=== PATIENT | female | born 2000 | race Hispanic/Latino ===

== ENCOUNTER 2024-02-13 | Observation (INO) | payer SELFPAY ==
[2024-02-13 00:32] LABS: Bacteria/HPF None Seen HPF (None Seen); Bilirubin Negative (Negative); Blood, Urine Negative (Negative); CAUTI Indications for Culture Pelvic or flank pain; Clarity Clear (Clear); Glucose, Urine (Dipstick) Normal (Negative); Ketone, Urine Negative (Negative); Leukocyte Negative Leu/uL (Negative); Nitrite Negative (Negative); Protein, Urine (Dipstick) Negative (Neg-Trace); RBC/HPF 0-3 HPF (0-3); Squamous Epithelial 0-3 HPF (0-3); Urobilinogen Normal mg/dL (Less than 2); WBC/HPF 0-3 HPF (0-3); pH, Urine 6.5 (5.0-9.0)
[2024-02-13 00:33] LABS: Pregnancy Test - Urine (BHCG) Negative (Negative); Pregu Control Background? CLEAR/WHITE (CLR/WHITE); Pregu Control Bar Appear? YES (CONTROL BAR); Specific Gravity 1.003 (1.002-1.036); Specific Gravity, Urine 1.003 (1.002-1.036); Urine Culture Reflex No No
[2024-02-13] MEDS ORDERED: Famotidine/PF 20 mg/2ml Vial ONE (00:58)
[2024-02-13] MEDS ORDERED: Ondansetron PF 4 MG/2 ML Vial ONE ×2 (00:58→14:37)
[2024-02-13] MEDS ORDERED: Ketorolac Tromethamine 30 MG (1 mL) VIAL ONE (00:58)
[2024-02-13 01:05] LABS: #Basophils 0.05 10x3/uL (0.0-0.2); %Basophils 0.3 % (0.0-1.0); %Eosinophils 0.2 % (0.0-10.0); %Lymphocytes 18.5 % (21.0-51.0); %Monocytes 5.7 % (0.0-10.0); %Neutrophils 75.1 % (42.0-75.0); Hematocrit 41.3 % (36.0-47.0); Hemoglobin 13.5 g/dL (12.0-16.0); Mean Corpuscular HGB CONC 32.7 g/dL (32.0-36.0); Mean Corpuscular Hemoglobin 28.3 pg (27.0-31.0); Mean Corpuscular Volume 86.6 fL (78.0-98.0); Platelet Count 361 10x3/uL (130-400); RBC Distribution Width 12.7 % (11.5-14.5); Red Blood Cell (RBC) Count 4.77 mill/uL (4.20-5.40)
[2024-02-13 01:20] LABS: ALT (SGPT) 23 U/L (8-55); AST (SGOT) 27 U/L (5-34); Albumin 4.2 g/dL (3.5-5.0); Alkaline Phosphatase 79 U/L (40-110); Anion Gap 14 mmol/L (10-20); BUN (Urea Nitrogen) 6 mg/dL (7.0-18.7); Bilirubin, Total 0.5 mg/dL (0.2-1.2); Calc. Creatinine Clearance 0 mL/min (70-130); Calcium 9.8 mg/dL (7.8-10.44); Carbon Dioxide 25 mmol/L (22-29); Chloride 101 mmol/L (98-107); Estimated GFR 117; Globulin 4.5 g/dL (2.4-3.5); Glucose 105 mg/dL (70-105); Lipase 21 U/L (8-78); Potassium 4.3 mmol/L (3.5-5.1); Protein, Total 8.7 g/dL (6.0-8.3); Sodium 136 mmol/L (136-145)
[2024-02-13] MEDS ORDERED: Piperacillin/Tazobactam 4.5 GM VIAL ONE (02:09)
[2024-02-13] MEDS ORDERED: Ondansetron PF 4 MG/2 ML Vial IVP PRN (02:31)
[2024-02-13] MEDS ORDERED: Ipratropium/Albuterol 3 ML NEB NEB PRN (02:31)
[2024-02-13] MEDS ORDERED: traMADol HCl 50 MG TAB PO PRN (02:34)
[2024-02-13 04:59] VITALS: BMI 32.1
[2024-02-13] MEDS: Acetaminophen 325 MG TAB PO SCH (05:11)
[2024-02-13] MEDS: traMADol HCl 50 MG TAB PO SCH (05:11)
[2024-02-13] MEDS: Piperacillin/Tazobactam 3.375 GM in Sodium Chloride 0.9% 100 ML IVPB SCH (06:16)
[2024-02-13] MEDS: Famotidine/PF 20 mg/2ml Vial SLOW IVP SCH (10:39)
[2024-02-13] MEDS ORDERED: Bupivacaine 0.25% HCL 30 ML VIAL ONE (14:26)
[2024-02-13] MEDS ORDERED: EPINEPHrine 1 MG/ML VIAL ONE (14:26)
[2024-02-13] MEDS ORDERED: Piperacillin/Tazobactam 3.375 GM VIAL ONE (14:28)
[2024-02-13] MEDS ORDERED: Sodium Chloride 0.9% 100 ML ONE (14:28)
[2024-02-13] MEDS ORDERED: SUGAMMADEX SODIUM 200 MG/2 ML VIAL ONE (14:32)
[2024-02-13] MEDS ORDERED: HYDROmorphone 0.5 MG/0.5 ML SYRINGE ONE (14:33)
[2024-02-13] MEDS ORDERED: fentaNYL PF 100 MCG/2 ML SYRINGE ONE (14:37)
[2024-02-13] MEDS ORDERED: Rocuronium Bromide 10 MG/ML (10ML VIAL) ONE (14:37)
[2024-02-13] MEDS ORDERED: PROPOFOL 20 ML ONE (14:37)
[2024-02-13] MEDS ORDERED: Dexamethasone 20 MG/5 ML VIAL ONE (14:37)
[2024-02-13] MEDS ORDERED: Lidocaine 1% PF 5 ML VIAL ONE (14:37)
[2024-02-13] MEDS ORDERED: Albuterol HFA (OR) 200 PUFF INH ONE (15:51)
[2024-02-13] MEDS ORDERED: fentaNYL 50 mcg/mL 1 mL Vial ONE (16:36)
[2024-02-13] MEDS: Morphine 2 MG/ML VIAL SLOW IVP PRN (19:22)
[2024-02-14 05:41] LABS: #Basophils Less than 0.03 10x3/uL (0.0-0.2); #Eosinophils Less than 0.03 10x3/uL (0.0-0.7); %Basophils 0.1 % (0.0-1.0); %Lymphocytes 11.4 % (21.0-51.0); %Monocytes 2.9 % (0.0-10.0); Hematocrit 39.8 % (36.0-47.0); Hemoglobin 12.9 g/dL (12.0-16.0); Mean Corpuscular HGB CONC 32.4 g/dL (32.0-36.0); Mean Corpuscular Hemoglobin 28.2 pg (27.0-31.0); Mean Corpuscular Volume 86.9 fL (78.0-98.0); Mean Platelet Volume 9.9 fL (7.4-10.4); Platelet Count 340 10x3/uL (130-400); RBC Distribution Width 12.5 % (11.5-14.5); Red Blood Cell (RBC) Count 4.58 mill/uL (4.20-5.40)
[2024-02-14 05:52] LABS: ALT (SGPT) 56 U/L (8-55); AST (SGOT) 54 U/L (5-34); Albumin 3.5 g/dL (3.5-5.0); Alkaline Phosphatase 77 U/L (40-110); Anion Gap 11 mmol/L (10-20); BUN (Urea Nitrogen) 6 mg/dL (7.0-18.7); Bilirubin, Total 0.4 mg/dL (0.2-1.2); Calc. Creatinine Clearance 163 mL/min (70-130); Calcium 9.5 mg/dL (7.8-10.44); Carbon Dioxide 25 mmol/L (22-29); Chloride 105 mmol/L (98-107); Estimated GFR 127; Glucose 111 mg/dL (70-105); Potassium 4.1 mmol/L (3.5-5.1); Protein, Total 7.5 g/dL (6.0-8.3); Sodium 137 mmol/L (136-145)
[2024-02-14] MEDS ORDERED: Ibuprofen 600 MG TAB PO PRN (06:28)
[2024-02-14] MEDS: Acetaminophen 500 MG TAB PO SCH (10:24)
[2024-02-14 14:13] VITALS: BP 105/70
[2024-02-14 16:01] VITALS: TEMP 97.8
[2024-02-16] MEDS ORDERED: FLU (Fluarix Triv) TS24-25(6MOS UP)/PF 45 MCG/0.5 ML Syringe IM ONE (09:00)
== END 2024-02-14 15:00 | disposition home or self-care (01) ==
LOC: ERS → MSONC 03:57
PROVIDERS: ADMIT Surgery; ATTEND Surgery
PROC: 0FT44ZZ Resection of Gallbladder, Percutaneous Endoscopic Approach (ICD-10-PCS; principal; 2024-02-14)
DX: K80.12 Calculus of gallbladder with acute and chronic cholecystitis without obstruction (principal)
CPT/HCPCS: 36415; 36416; 76705; 80053; 81001; 81025; 83690; 85025; 88304; 96365; 96366; 96375; 96376; C1713; G0378; J0171; J0665; J1100; J1170; J1885; J2272; J2405; J2543; J2704; J3010; J3490

== ENCOUNTER 2025-01-13 14:44 | Emergency (ER) | payer MEDICAID ==
[~2025-01-13 14:44] MED LIST: Iopamidol-370 76% 500 ML MDV (1 ML CHARGE) ONE
[2025-01-13] MEDS ORDERED: Acetaminophen 500 MG TAB ONE (15:41)
[2025-01-13] MEDS ORDERED: Ketorolac Tromethamine 30 MG (1 mL) VIAL ONE (17:19)
[2025-01-13 17:31] LABS: #Basophils 0.03 10x3/uL (0.0-0.2); #Eosinophils Less than 0.03 10x3/uL (0.0-0.7); #Monocytes 0.81 10x3/uL (0.11-0.59); #Neutrophils 9.59 10x3/uL (1.40-6.50); %Basophils 0.2 % (0.0-1.0); %Eosinophils 0.2 % (0.0-10.0); %Lymphocytes 19.7 % (21.0-51.0); %Monocytes 6.2 % (0.0-10.0); %Neutrophils 73.3 % (42.0-75.0); Hematocrit 43.4 % (36.0-47.0); Hemoglobin 13.9 g/dL (12.0-16.0); Mean Corpuscular Hemoglobin 27.9 pg (27.0-31.0); Mean Corpuscular Volume 87.0 fL (78.0-98.0); Platelet Count 315 10x3/uL (130-400); Red Blood Cell (RBC) Count 4.99 mill/uL (4.20-5.40); White Blood Cell (WBC) Count 13.08 10x3/uL (4.8-10.8)
[2025-01-13 17:42] LABS: ALT (SGPT) 51 U/L (Less than 34); AST (SGOT) 40 U/L (11-34); Albumin 3.8 g/dL (3.1-4.5); Alkaline Phosphatase 128 U/L (40-110); Anion Gap 15 mmol/L (10-20); BHCG - Serum Negative (NEGATIVE); BUN (Urea Nitrogen) 17 mg/dL (7.0-18.7); Bilirubin, Total 0.2 mg/dL (0.3-1.2); Calc. Creatinine Clearance 0 mL/min (70-130); Calcium 8.9 mg/dL (7.8-10.44); Carbon Dioxide 22 mmol/L (22-29); Chloride 105 mmol/L (98-107); Globulin 4.7 g/dL (2.4-3.5); Glucose 100 mg/dL (70-105); Lipase 41 U/L (8-78); Magnesium 2.0 mg/dL (1.6-2.6); Potassium 3.5 mmol/L (3.5-5.1); Pregs Control Background? CLEAR/WHITE (CLR/WHITE); Pregs Control Bar Appear? YES (CONTROL BAR); Sodium 138 mmol/L (136-145)
[2025-01-13 20:35] LABS: Bacteria/HPF None Seen HPF (None Seen); CAUTI Indications for Culture Pregnancy; Glucose, Urine (Dipstick) Normal (Negative); Leukocyte 250 Leu/uL (Negative); Protein, Urine (Dipstick) Negative (Neg-Trace); RBC/HPF 0-3 HPF (0-3); Specific Gravity, Urine 1.029 (1.002-1.036)
[2025-01-13 20:37] LABS: Urine Culture Reflex Yes Yes
== END 2025-01-13 20:58 | disposition home or self-care (01) ==
LOC: ERS 14:44
DX: N39.0 Urinary tract infection, site not specified (principal)
CPT/HCPCS: 36415; 71045; 71275; 80053; 81001; 83605; 83690; 83735; 83880; 84484; 84703; 85025; 87040; 87081; 87086; 87428; 87430; 93005; 96361; 96365; 96375; J1100; J1885; J2543; Q9967